=== PATIENT | female | born 1970 | race Caucasian/White ===

== ENCOUNTER → 2016-03-14 | Outpatient (CLI) | payer OTHER ==
--- NOTE | 2016-03-14 15:25 | DI ---
XR HIP COMPLETE MIN 2VW U/L,03/14/2016 1:30 PM: Clinical History: Right hip pain Previous Exam: None at this facility. Findings: Multiple views of the right hip are obtained, and demonstrate anatomic alignment without fractures. V isualized portions of the lumbar spine are unremarkable. There is some increased bone along the head neck junction of the proximal femora bilaterally. There is no subchondral cyst formation. A nonobstructive bowel gas pattern is seen. Impression: 1. No fracture. 2. Possible femoral acetabular impingement bilaterally. Correlate clinically.
== END ==
LOC: ORTHO 13:41
PROVIDERS: ATTEND Orthopaedic Surgery
DX: M25.551 Pain in right hip (principal)
CPT/HCPCS: 73502

== ENCOUNTER → 2016-03-23 | Outpatient (CLI) | payer OTHER ==
--- NOTE | 2016-03-23 14:37 | DI ---
XR INJECTION PROCEDURE HIP,03/23/2016 12:45 PM: Clinical History: Right outer hip pain. Previous Exam: Plain films of the right hip performed March 14, 2016 Procedure: Risks benefits and alternatives were explained to the patient and informed written consent obtained. The patient was placed supine on the fluoroscopy table and theright hip prepped and draped in the usu al sterile fashion. 1% lidocaine was used for local anesthesia. Under fluoroscopic guidance, a 22-gauge spinal needle was advanced into the right hip joint. Approxim ately 17 cc of a iodinated contrast medium with normal saline and dilute gadolinium was administered. The patient tolerated the procedure well and was sent to the MRI scanner for the second portion of e examination. Findings: Fluoroscopic images demonstrate contrast within the hip joint. Impression: Successful hip joint arthrogram. MRI pending.
--- NOTE | 2016-03-23 16:17 | DI ---
MRI LOW EXTREMITY JNT W/CN,03/23/2016 12:44 PM: Clinical History: Right hip pain. Previous Exam: Plain films performed March 14, 2016 Findings: Multiplanar MR images are obtained through the right hip following the intra-articular administration of dilute gadolinium contrast. Bony alignment is anatomic. No fractures are seen. There is normal version of the acetabulum. There is no subchondral defect. There is a small labral tear involving the superior lateral acetabular labrum. There is no evidence of cartilage delamination. Visualized portions of the pelvic organs are unremarkable. The major vascular flow voids are unremarkable. Signal within the musculature is also unremarkable. Impression: Small tear through the superior lateral acetabular labrum.
== END ==
LOC: RAD 12:35
PROVIDERS: ATTEND Orthopaedic Surgery
DX: M25.551 Pain in right hip (principal); S73.191A Other sprain of right hip, initial encounter
CPT/HCPCS: 27093; 73722; A9579